=== PATIENT | female | born 1985 | race African-American/Black ===

== ENCOUNTER 2020-03-25 00:34 | Emergency (ER) | payer MEDICAID ==
[~2020-03-25] VITALS: Ht 182.9 cm; Wt 108.9 kg
[2020-03-25 01:00] VITALS: BP 123/79
--- NOTE | 2020-03-25 01:00 | NUR ---
ED Nurse Note: Patient walked into ED for c/o fever, chills and sore throat x 2 days. She also notes bilat ear pain with N/V. Patient states sore throat is worse when swallowing. She has taken nothing at home to make it better. She is aaox4, breathing is normal and unlabored. Patient connected to special education aide. She is sinus tach with HR in 110's. Oxygen saturation is normal. Safety measures in place.
--- NOTE | 2020-03-25 01:05 | Emergency Room Report ---
History of Present Illness General Chief Complaint: Flu Like Symptoms Source: Patient Present Illness [facility] This a 34-year-old transgender female with no past medical history. She presents with chief complaint of fever chills sore throat and ear pain. Last 2 to 3 days. Worse tonight. Subjective fever and chills. Has body pain. Throat pain is 10 out of 10. Worse with swallowing. Also with right ear pain. Has nausea and vomiting also. Has not take anything for this. Nothing made it better. Swallowing made it worse. Vomiting is nonbloody nonbilious. No diarrhea. 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 Review of Systems Constitutional: Reports: chills, fever, malaise Eye: Denies: eye pain, blurred vision ENT: Reports: ear pain, throat pain, throat swelling Respiratory: Denies: cough, shortness of breath Cardiovascular: Denies: chest pain, palpitations Gastrointestinal: Reports: nausea, vomiting Musculoskeletal: Denies: back pain, joint pain Skin: Denies: rash Neurological: Denies: headache, numbness Endocrine: Denies: increased thirst, increased urine Hematologic/Lymphatic: Denies: easy bruising All Other Systems: negative except mentioned in HPI Physical Exam Vital Signs Date Time Temp Pulse Resp B/P (MAP) Pulse Ox O2 Delivery O2 Flow Rate FiO2 03/25/20 00:39 97.2 135 22 123/79 (94) 92 Room Air Vitals with tachycardia. Repeat pulse ox is 97%. Sp02 EP Interpretation: reviewed, normal General Appearance: well appearing, alert, other - Ill-appearing Head: normocephalic, atraumatic Eyes: bilateral eye PERRL, bilateral eye EOMI ENT: hearing grossly normal, tonsillar swelling, pharyngeal erythema, tonsillar exudate - Right side, other - Right TM is erythematous Neck: full range of motion, supple, no meningismus Respiratory: chest non-tender, lungs clear, normal breath sounds Cardiovascular #1: regular rate, rhythm, no murmur Gastrointestinal: normal bowel sounds, non tender, no mass, no organomegaly, no bruit, non-distended Musculoskeletal: back normal, normal range of motion, gait/station normal Psychiatric: mood/affect normal Medical Decision Making Diagnostic Impression: Primary Impression: Acute tonsillitis Qualified Codes: J03.90 - Acute tonsillitis, unspecified ER Course Patient presents with acute tonsillitis. Most likely strep in nature. No evidence of Covid. No evidence of peritonsillar abscess, retropharyngeal abscess or Víctor angina. She felt better after medication here. Will discharge home. Last Vital Signs Date Time Temp Pulse Resp B/P (MAP) Pulse Ox O2 Delivery O2 Flow Rate FiO2 03/25/20 00:39 97.2 135 22 123/79 (94) 92 Room Air Status: improved Disposition: HOME, SELF-CARE Condition: Improved Scripts Ibuprofen* (MOTRIN*) 600 Mg Tablet 600 MG ORAL Q6H PRN for For Pain, #30 TAB 0 Refills Prov: Luis Fish MD 03/25/20 Hydrocodone/Acetaminophen 5-325* (HYDROCODONE/ACETAMINOPHEN 5-325*) 1 Each Tablet 1 TAB ORAL Q6H PRN for For Pain, #15 TAB 0 Refills Prov: Luis Fish MD 03/25/20 Clindamycin Hcl (CLINDAMYCIN HCL) 300 Mg Capsule 300 MG ORAL THREE TIMES A DAY, #21 CAP Prov: Luis Fish MD 03/25/20 Referrals: NOT CHOSEN IPA/,REFERRING (PCP) Additional Instructions: Increase fluids. Salt water gargle. Follow-up with your doctor in 2 to 3 days for recheck if not better. Return if worse. Luis Fish MD Mar 25, 2020 01:05
[2020-03-25] MEDS ORDERED: dexAMETHasone 10mg/ml Inj IV ONE (01:15)
[2020-03-25] MEDS ORDERED: Ketorolac 30mg Inj IV ONE (01:15)
[2020-03-25] MEDS ORDERED: Acetaminophen 500mg (ES) tab ORAL ONE (01:15)
[2020-03-25] MEDS ORDERED: cefTRIAXone 1 GM in NS 55 ML IVPB ONE (01:15)
[2020-03-25 01:49] LABS: BASOPHILS % (AUTO) 0.6 % (0.0-2.0); EOSINOPHILS % (AUTO) 0.1 % (0.0-3.0); HEMATOCRIT 50.6 % (37.0-47.0); HEMOGLOBIN 16.6 G/DL (12.0-16.0); MEAN CORPUSCULAR VOLUME 93 FL (80-99); MONOCYTES % (AUTO) 6.8 % (1.0-10.0); NEUTROPHILS % (AUTO) 83.6 % (45.0-75.0); PLATELET COUNT 237 K/UL (150-450); RED BLOOD COUNT 5.44 M/UL (4.20-5.40); RED CELL DISTRIBUTION WIDTH 15.8 % (11.6-14.8); WHITE BLOOD COUNT 11.9 K/UL (4.8-10.8)
[2020-03-25 01:56] LABS: ANION GAP 13 mmol/L (5-15); BLOOD UREA NITROGEN 12 mg/dL (7-18); CALCIUM 9.1 MG/DL (8.5-10.1); CARBON DIOXIDE 25 MMOL/L (21-32); CHLORIDE 102 MMOL/L (98-107); CREATININE 1.1 MG/DL (0.55-1.30); POTASSIUM 4.5 MMOL/L (3.5-5.1); SODIUM 140 MMOL/L (136-145)
--- NOTE | 2020-03-25 02:00 | NUR ---
ED Nurse Note: Patient is resting in bed at this time. NAD noted. Pending disposition from [facility] at this time.
[2020-03-25] MEDS ORDERED: IBUPROFEN600 M1 ORAL (02:25)
[2020-03-25] MEDS ORDERED: CLINDAMYCIN HC300 MG ORAL (02:25)
[2020-03-25] MEDS ORDERED: HYDROCODON-ACE1 EA15 ORAL (02:25)
[2020-03-25] MEDS ORDERED: Morphine Sulfate 4mg/ml Inj (IV USE ONLY) IVP ONE (02:30)
[2020-03-25 02:55] VITALS: BP 121/74
--- NOTE | 2020-03-25 02:55 | NUR ---
ER DISCHARGE NOTE: Patient is cleared to be discharged per ERMD, pt is aox4, on room air, with stable vital signs. pt was given dc and prescription instructions, pt was able to verbalize understanding, pt id band and iv site removed without complications. pt is able to ambulate with steady gait. pt took all belongings.
[2020-03-25] MEDS ORDERED: HYDROCORTISO453.6 G1 TP (21:22)
[2020-03-25] MEDS ORDERED: BENADRYL25 M3 PO (21:22)
[2020-03-25] MEDS ORDERED: PREDNISONE20 MG ORAL (21:22)
[2020-03-25] MEDS ORDERED: ZITHROMAX250 MG ORAL (21:22)
== END 2020-03-25 02:55 | disposition home or self-care (01) ==
LOC: EMR 01:02
DX: J03.90 Acute tonsillitis, unspecified (principal); Z88.0 Allergy status to penicillin; F64.0 Transsexualism
CPT/HCPCS: 36415; 80048; 85025; 96361; 96365; 96375; J0696; J1885; J2270; J2405; J7030; U0002; Z7502; 99284

== ENCOUNTER 2020-03-25 20:35 | Emergency (ER) | payer OTHER, MEDICAID ==
[~2020-03-25] VITALS: Ht 182.9 cm; Wt 108.9 kg
[~2020-03-25 20:35] MED LIST: CLINDAMYCIN HC300 MG ORAL; HYDROCODON-ACE1 EA15 ORAL; IBUPROFEN600 M1 ORAL
[2020-03-25 20:55] VITALS: BP 132/87
--- NOTE | 2020-03-25 21:00 | NUR ---
ED Nurse Note: PT AMBULATED INTO ED FROM HOME CO RASH OVER ENTIRE BODY FROM RECENT CONSUMPTION OF ANTIBIOTICS PRESCRIBED AT [facility] YESTERDAY. PT REPORTS PAIN 7/10 DESCRIBED BURNING, PT AAO X 4, AMBULATES WITH STEADY GAIT. VSS. AWAITING ERMD AT BEDSIDE. AWAITING FURTHER ORDERS.
--- NOTE | 2020-03-25 21:10 | NUR ---
ED Nurse Note: ERPA AT BEDSIDE
--- NOTE | 2020-03-25 21:19 | NUR ---
ED Nurse Note: ALL MEDICATIONS ADMINSITERED, PT TOLERATED WELL NO SS OF DISTRESS NOTED. WILL CONTINUE TO MONITOR.
--- NOTE | 2020-03-25 21:20 | Emergency Room Report ---
History of Present Illness General Chief Complaint: Skin Rash/Abscess Present Illness HPI 34-year-old female with no significant past medical history here complaining of pruritic rash all over body after starting to take clindamycin yesterday. Patient was prescribed Comycin for tonsillitis at [facility] 1 day ago. Denies any anaphylaxis at this time. Denies any shortness of breath. Reports that the rash is spreading and is extremely pruritic. Has been applying [id number] cortisone cream with minimal relief. Patient is also overly anxious. Denies any fever and chills, pain at the site of rash, chest pain, shortness of breath, headache and dizziness. Denies . 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 Review of Systems All Other Systems: negative except mentioned in HPI Physical Exam Vital Signs Date Time Temp Pulse Resp B/P (MAP) Pulse Ox O2 Delivery O2 Flow Rate FiO2 03/25/20 20:45 98.2 81 18 132/87 (102) 95 Room Air Sp02 EP Interpretation: reviewed, normal General Appearance: no apparent distress, alert, GCS 15, non-toxic Head: normocephalic, atraumatic Eyes: bilateral eye normal inspection, bilateral eye PERRL ENT: hearing grossly normal, no angioedema, normal voice, other - No anaphylaxis noted Neck: full range of motion, supple/symm/no masses Respiratory: chest non-tender, lungs clear, normal breath sounds, speaking full sentences Cardiovascular #1: regular rate, rhythm, no edema Cardiovascular #2: 2+ carotid (R), 2+ carotid (L), 2+ radial (R), 2+ radial (L), 2+ dorsalis pedis (R), 2+ dorsalis pedis (L) Gastrointestinal: normal bowel sounds, non tender, soft, non-distended, no guarding, no rebound Musculoskeletal: back normal Neurologic: alert, motor strength/tone normal, oriented x3, sensory intact, responsive, speech normal Psychiatric: judgement/insight normal, memory normal, mood/affect normal, no suicidal/homicidal ideation Skin: rash - Allergic urticaria Lymphatic: no adenopathy Medical Decision Making PA Attestation All my diagnosis and treatment plans were reviewed ad discussed with my [facility] physician Dr. Brandt Diagnostic Impression: Primary Impression: Allergic urticaria Additional Impression: Tonsillitis ER Course 34-year-old female with no significant past medical history here complaining of pruritic rash all over body after starting to take clindamycin yesterday. Patient was prescribed Comycin for tonsillitis at [facility] 1 day ago. Denies any anaphylaxis at this time. Denies any shortness of breath. Reports that the rash is spreading and is extremely pruritic. Has been applying [id number] cortisone cream with minimal relief. Patient is also overly anxious. Denies any fever and chills, pain at the site of rash, chest pain, shortness of breath, headache and dizziness. Denies . Ddx considered but are not limited to: Eczema, scabies, lice, allergic urticaria Vital signs: are WNL, pt. is afebrile H&PE are most consistent with: Allergic urticaria, tonsillitis with exudate ORDERS: Prednisone, Benadryl, hydrocortisone cream, azithromycin ED INTERVENTIONS: Dexamethasone IM, at this time due to patient coming to ED via [employer] cannot give any Benadryl due to drowsiness. I also changed her antibiotic for patient and advised patient to be aware that she is also allergic to clindamycin in addition to penicillin family. DISCHARGE: At this time pt. is stable for d/c to home. Will provide printed patient care instructions, and any necessary prescriptions. Care plan and follow up instructions have been discussed with the patient prior to discharge. Advised patient take medication as directed, follow primary care provider, if worsening symptoms return to the emergency room Patient was evaluated in the context of the global COVID-19 pandemic, which necessitated consideration that the patient might be at risk for infection with the SARS-COV-2 virus that causes COVID-19. Institutional protocols and algorithms that pertain to the evaluation of patients at risk for COVID-19 are in a state of rapid change based on information relieved by multiple regulatory bodies including the CDC and the federal and state organizations. These policies and algorithms were followed during the patient's care in the ED. Last Vital Signs Date Time Temp Pulse Resp B/P (MAP) Pulse Ox O2 Delivery O2 Flow Rate FiO2 03/25/20 20:45 98.2 81 18 132/87 (102) 95 Room Air Disposition: HOME, SELF-CARE Condition: Stable Patient Instructions: Hives, [id number], Tonsillitis, [id number] Additional Instructions: Take medication as directed, increase oral hydration, follow primary care provider, if worsening symptoms, anaphylaxis return to the emergency room Eloy Valiente Mar 25, 2020 21:19
[2020-03-25] MEDS ORDERED: ZITHROMAX250 MG ORAL (21:22)
[2020-03-25] MEDS ORDERED: BENADRYL25 M3 PO (21:22)
[2020-03-25] MEDS ORDERED: PREDNISONE20 MG ORAL (21:22)
[2020-03-25] MEDS ORDERED: HYDROCORTISO453.6 G1 TP (21:22)
[2020-03-25 21:45] VITALS: BP 129/84
--- NOTE | 2020-03-25 21:45 | NUR ---
ER DISCHARGE NOTE: Patient is cleared to be discharged HOME per ERMD, pt is aox4, 98% on room air, with stable vital signs. pt was given dc and prescription instructions, pt was able to verbalize understanding, pt id band removed without complications. pt is able to ambulate with steady gait. pt took all belongings.
== END 2020-03-25 21:45 | disposition home or self-care (01) ==
LOC: EMR 21:22
DX: L50.0 Allergic urticaria (principal); J03.90 Acute tonsillitis, unspecified; Z88.0 Allergy status to penicillin; F64.0 Transsexualism
CPT/HCPCS: 96372; 99282; J1100

== ENCOUNTER 2020-04-17 08:49 | Emergency (ER) | payer OTHER, MEDICAID ==
[~2020-04-17] VITALS: Ht 182.9 cm; Wt 113.4 kg
[~2020-04-17 08:49] MED LIST changes: +BENADRYL25 M3 PO; +HYDROCORTISO453.6 G1 TP; +PREDNISONE20 MG ORAL; +ZITHROMAX250 MG ORAL
[2020-04-17 09:21] VITALS: BP 106/72
[2020-04-17] MEDS ORDERED: ZITHROMAX250 MG ORAL (11:06)
[2020-04-17 11:18] VITALS: BP 110/76
--- NOTE | 2020-04-17 13:32 | Emergency Room Report ---
History of Present Illness General Chief Complaint: Upper Respiratory Illness Source: Patient Present Illness HPI 34-year-old female here with upper respiratory symptoms of nasal congestion, cough, subjective shortness of breath. 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 Patient symptoms have been ongoing for several days. She has not been tested yet for COVID-19. Does not take any medications. Denies headache, vision changes, lightheadedness, syncope, presyncope chest pain, palpitations, back pain, arm pain, nausea, vomiting, diarrhea, dysuria. 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 Review of Systems All Other Systems: negative except mentioned in HPI Physical Exam Vital Signs Date Time Temp Pulse Resp B/P (MAP) Pulse Ox O2 Delivery O2 Flow Rate FiO2 04/17/20 08:52 98.8 106 20 106/72 (83) 93 Room Air Sp02 EP Interpretation: reviewed, normal General Appearance: no apparent distress, alert, non-toxic Head: normocephalic, atraumatic Eyes: bilateral eye normal inspection, bilateral eye PERRL ENT: hearing grossly normal, normal pharynx, no angioedema, normal voice, other - Nasal congestion Neck: full range of motion, supple/symm/no masses Respiratory: chest non-tender, lungs clear, normal breath sounds, speaking full sentences Cardiovascular #1: regular rate, rhythm, no edema Cardiovascular #2: 2+ carotid (R), 2+ carotid (L), 2+ radial (R), 2+ radial (L), 2+ dorsalis pedis (R), 2+ dorsalis pedis (L) Gastrointestinal: normal bowel sounds, non tender, soft, non-distended, no guarding, no rebound Rectal: deferred Genitourinary: normal inspection, no CVA tenderness Musculoskeletal: back normal, normal range of motion, calf tenderness, gait/station normal, non-tender Neurologic: alert, motor strength/tone normal, oriented x3, sensory intact, responsive, speech normal Psychiatric: judgement/insight normal, memory normal, mood/affect normal, no suicidal/homicidal ideation Reflexes: 3+ bicep (R), 3+ bicep (L), 3+ tricep (R), 3+ tricep (L), 3+ knee (R), 3+ knee (L) Lymphatic: no adenopathy Medical Decision Making Diagnostic Impression: Primary Impression: Upper respiratory infection ER Course 34-year-old male to female here with nasal congestion, sore throat, nonproductive cough. Patient had normal physical examination. Patient has been exposed multiple times to coronavirus at her work. Due to the unavailability of rapid test in the emergency department there is no indication to test the patient for COVID-19 here. She was told to go to an outpatient testing center such as the one that is across the street from this emergency department. She was in no respiratory distress whatsoever and had normal vital signs and physical examination. She had a normal chest x-ray and was given information to follow-up with her primary care physician. Told to come back to the emergency department with worsening shortness of breath. She expressed understanding and was discharged. Chest x-ray: No infiltrate/effusion. Mediastinum within normal limits no consolidation Last Vital Signs Date Time Temp Pulse Resp B/P (MAP) Pulse Ox O2 Delivery O2 Flow Rate FiO2 04/17/20 09:21 106 20 Room Air 04/17/20 09:21 98.8 106/72 93 Disposition: HOME, SELF-CARE Condition: Stable Scripts Azithromycin* (ZITHROMAX*) 250 Mg Tablet 250 MG ORAL DAILY, #6 TAB 0 Refills Take two tables once daily for 1 day, then one tablet once daily for 4 days. Prov: Renaldo Zhou M.D. 04/17/20 Referrals: NOT CHOSEN IPA/,REFERRING (PCP) [facility]yla [facility]. [facility] Patient Instructions: Upper Respiratory Infection, Adult Renaldo Zhou M.D. Apr 17, 2020 13:32
--- NOTE | 2020-04-17 14:12 | Diagnostic Imaging Report ---
Indication: Reason For Exam: COUGH Technique: Single AP view of the chest. Comparison: None. Findings: Heart is not enlarged by counter projection and technique. There is elevation of the right hemidiaphragm with associated volume loss and right basilar subsegmental atelectasis. Mild pulmonary vascular congestion. No pneumothorax. No acute osseous abnormality. Status post median sternotomy with preserved alignment of wires. IMPRESSION: 1. Right basilar atelectasis. 2. Pulmonary vascular congestion.
== END 2020-04-17 11:18 | disposition home or self-care (01) ==
LOC: EMR 10:08
DX: J06.9 Acute upper respiratory infection, unspecified (principal); Z88.0 Allergy status to penicillin
CPT/HCPCS: 71045; 99283